=== PATIENT | male | born 1970 | race Caucasian/White ===

== ENCOUNTER 2024-04-16 11:03 | Day surgery (SDC) | payer OTHER, BC ==
[~2024-04-16] VITALS: Ht 180.3 cm; Wt 110.9 kg
[2024-04-16] VITALS (16 sets, daily range): BP systolic 102–147; BP diastolic 57–87; PULSE 53–75; TEMP 97.6–98.2
[~2024-04-16 11:03] MED LIST: LR 1,000 ML IV SCH; Meclizine 25 MG TAB PO SCH
[2024-04-16] MEDS ORDERED: SYNTHROID 0.10.15 MG PO (11:50)
[2024-04-16] MEDS ORDERED: DIOVAN 80MG80 MG PO (11:51)
[2024-04-16] MEDS ORDERED: ROXICODONE 55 MG/TAB PO (13:23)
[2024-04-16] MEDS ORDERED: fentaNYL 50 MCG/ML 2 ML VIAL ONE ×2 (13:29)
[2024-04-16] MEDS ORDERED: oxyCODONE 5 MG TAB PO PRN (13:30)
[2024-04-16] MEDS ORDERED: Ondansetron 4 MG/2 ML VIAL IV PRN ×2 (13:30→14:15)
[2024-04-16] MEDS ORDERED: Atracurium 50 MG/5 ML VIAL IV ONE (13:30)
[2024-04-16] MEDS ORDERED: Ketorolac 30 MG/ML VIAL ONE (14:01)
[2024-04-16] MEDS ORDERED: Ondansetron 4 MG/2 ML VIAL ONE (14:01)
[2024-04-16] MEDS ORDERED: dexAMETHasone 10 MG/ML VIAL ONE (14:01)
[2024-04-16] MEDS ORDERED: Glycopyrrolate 0.2 MG/ML 1 ML VIAL ONE (14:05)
[2024-04-16] MEDS ORDERED: hydrALAZINE 20 MG/ML 1 ML VIAL IV PRN (14:15)
[2024-04-16] MEDS ORDERED: HYDROmorphone 1 MG/1 ML SYRINGE [PACU/SDC ONLY] IV PRN (14:15)
[2024-04-16] MEDS ORDERED: fentaNYL 50 MCG/ML 1 ML SYRINGE/VIAL [PACU/SDC ONLY] IV PRN (14:15)
[2024-04-16] MEDS ORDERED: Meperidine 50 MG/ML 1 ML VIAL IV PRN (14:15)
[2024-04-16] MEDS ORDERED: Lidocaine PF 2% (20 MG/ML) 5 ML VIAL ONE (15:50)
[2024-04-16] MEDS ORDERED: MOTRIN 800800 MG/TAB PO (15:53)
[2024-04-16] MEDS ORDERED: Home traMADol 50 MG #2 TAB/PACK PO PRN (17:45)
--- NOTE | 2024-04-16 17:56 | NUR ---
Pt to [facility] at 1715, via cart. Bedside handoff received from BETH Santana. Patient with complaints of pain. Failed attempts on RA, oxygen on at 2L/NC. Family at bedside. Pt takes in water and jello, pain pill given, see EMAR. Dr. García called, updated, orders for Tramadol home packs to be sent- 6 tabs. Family updated. Pt reports that his pain is increasing to a 7/10. show design supervisor updated on possible need for bed due to oxygen saturations.
--- NOTE | 2024-04-16 18:40 | NUR ---
Pt up to surgical floor from ambulatory, pt drowsy but arousable, moaning. Has to be prompted to open his eyes and stand up when ambulating to the bed. Post-op vitals in place. 91-92% on room air, requiring 2L in PACU and ambulatory. Pt's belongings placed in closet - including medication packs to be sent home with pt. Pt's family at the bedside. Laying in bed, bed in lowest position with call light within reach. x3 bandaids to abdomen, island dressing to midline abdomen, C/D/I.
--- NOTE | 2024-04-16 18:47 | NUR ---
Patient continues to complain of pain, see EMAR for pain medications. REport given to Bryanna at 1808. Pt to floor room 330, transfers from cart to bed with assist of three staff. Discharge instructions and education given to patient and . They are aware that we will let patient rest, wean off oxygen, and make sure pain is tolerable prior to discharge. Ice chips given. Bedside handoff given to Bryanna at 1835. Questions answered.
--- NOTE | 2024-04-16 19:00 | NUR ---
PT PLACED ON 1L O2 PER NC FOR SATS <90
--- NOTE | 2024-04-16 19:52 | NUR ---
PT'S O2 SATS 88-89% ON RA, NOTIFIED DR WESLEY THAT PT WILL BE STAYING THE NOC, ORDERS REC'D
[2024-04-16] MEDS ORDERED: LR 1,000 ML IV SCH (20:00)
[2024-04-16] MEDS ORDERED: Phenol 1.4% Spray 180 ML BOTTLE MM PRN (20:00)
[2024-04-16] MEDS ORDERED: Glucagon 1 MG VIAL IM PRN (22:15)
[2024-04-16] MEDS ORDERED: Dextrose (Glucose) 15 GM (4 x 3.75 GM) Chewable TABLET PACK PO PRN (22:15)
[2024-04-16] MEDS ORDERED: Dextrose 50% Water 25 GM/50 ML SYRINGE IV PRN (22:15)
--- NOTE | 2024-04-16 22:50 | NUR ---
O2 SAT 95 ON 1L, PT AWAKE, SITTING UP IN BED, EATING, PLACED ON RA. OXY GIVEN FOR C/O PAIN. HAS BEEN UP WITH ASSIST X1 TO VOID
[2024-04-17 03:39] VITALS: BP 108/66; PULSE 55; TEMP 97.8
[2024-04-17 04:03] VITALS: BP_SYST 108
--- NOTE | 2024-04-17 04:42 | NUR ---
PT MAINTAINING O2 SAT ON RA, HAS BEEN UP WALKING IN THE HALLS, TOLERATING ADA DIET W/O N/V, VOIDING. IV TO INT, PAIN CONTROLLED WITH PO OXYCODONE. BANDAIDS TO ABD CDI. PT STATES HE IS READY TO GO HOME, FAMILY COMING BACK THIS AM TO PICK HIM UP.
[2024-04-17 07:48] VITALS: BP 117/69; PULSE 53; TEMP 97.6
[2024-04-17 08:00] VITALS: BP_SYST 117
--- NOTE | 2024-04-17 10:17 | NUR ---
SHIFT ASSESSMENT COMPLETE. VSS. PATIENT UP TO RECLINER FINISHING BREAKFAST. ALL MORNING MEDS GIVEN ORDERED. PATIENT REPORT PAIN TO ABD 6/10 PAIN MEDS GIVEN ORDERED. PATIENT HAS NO OTHER REQUEST AT THIS TIME. CALL LIGHT IN REACH
--- NOTE | 2024-04-17 10:27 | NUR ---
Social work student and hospital social worker Kelly met with Pt this morning. Pt lives in [place], PCP is [place], and uses [facility] for pharamacy. Pt lives with , Karen (p# [phone]). Pt does not use DME and is independent with [employer]. Pt drives themself. Pt does not have a DPOA and was uninterested in competing one at this time as next of kin is . Discharge: home.
--- NOTE | 2024-04-17 11:54 | NUR ---
IV disconticued from patients right forearm. IV catheter intact.
== END 2024-04-17 11:55 | disposition home or self-care (01) ==
LOC: SDCO 11:03 → SURG 18:41 → SDCO 04-17 11:55
DX: K40.20 Bilateral inguinal hernia, without obstruction or gangrene, not specified as recurrent (principal); D17.6 Benign lipomatous neoplasm of spermatic cord; I10 Essential (primary) hypertension; Z79.899 Other long term (current) drug therapy; K42.9 Umbilical hernia without obstruction or gangrene
CPT/HCPCS: OP; C1781; J0690; J1100; J1171; J1885; J2405; J2704; J3010; J7120